=== PATIENT | female | born 1950 | race Caucasian/White ===

== ENCOUNTER 2019-09-06 15:49 | Outpatient (CLI) | payer MEDICARE, OTHER, SELFPAY ==
--- NOTE | 2019-09-06 16:03 | XR_ITS ---
WS: [id number] AP knees. HISTORY: Osteoarthritis. COMPARISON: None. Upright imaging of the knees demonstrates very mild narrowing of the medial compartments. No fracture s or dislocation or bone abnormality. XR/[place] [address] IMPRESSION: Mild narrowing medial compartments of each knee.
== END 2019-09-06 15:50 | disposition home or self-care (01) ==
LOC: RAD 15:55
PROVIDERS: PCP Registered Nurse; Visit Provider Registered Nurse
DX: M17.0 Bilateral primary osteoarthritis of knee (principal)
CPT/HCPCS: 73565

== ENCOUNTER 2019-09-13 07:38 | Outpatient (CLI) | payer MEDICARE, OTHER, SELFPAY ==
--- NOTE | 2019-09-13 07:45 | XR_ITS ---
WS: [id number] XR KUB [id number] REASON FOR EXAM: RENAL CALCULUS FINDINGS: Multiple calcified densities throughout the abdomen are seen. Calcifications are seen overr iding both kidneys we cannot exclude ureteral are renal calculus. Consideration of CT recommended as too much calcification is seen to definitely make the conclusion. There is no evidence of obstructive changes of the larger small bowel. XR/XR KUB [id number] IMPRESSION: Excessive calcification throughout the abdomen we cannot rule out stones in eit her kidney.
== END 2019-09-13 07:39 | disposition home or self-care (01) ==
PROVIDERS: PCP Registered Nurse; Visit Provider Urology
DX: N20.0 Calculus of kidney (principal); N11.1 Chronic obstructive pyelonephritis
CPT/HCPCS: 74018; 81001

== ENCOUNTER 2019-10-17 11:24 | Outpatient (CLI) | payer MEDICARE, OTHER, SELFPAY ==
--- NOTE | 2019-10-17 11:38 | MM_ITS ---
WS: [id number] BILATERAL SCREENING DIGITAL MAMMOGRAM WITH CAD HISTORY: SCREENING COMPARISON: 07/06/2018, 03/03/2017 and 01/27/2017 Bilateral CC and MLO views submitted. Computer aided detection analyzed. Breast composition: The breasts are heterogeneously dense, which may obscure small masses. No suspici ous masses, microcalcifications or architectural distortion. Biopsy clip in the central RIGHT breast. No new masses or developing calcifications. MM/[place] [id number] IMPRESSION: BI-RADS: 2-Benign FOLLOW UP: 1 Year Follow-up
== END 2019-10-17 11:25 | disposition home or self-care (01) ==
LOC: RADSHAW 11:28
PROVIDERS: PCP Registered Nurse; Visit Provider Registered Nurse
DX: Z12.31 Encounter for screening mammogram for malignant neoplasm of breast (principal)
CPT/HCPCS: 77067

== ENCOUNTER → 2020-02-14 14:28 | Outpatient (BNVA) | payer MEDICARE, OTHER, SELFPAY | PROVIDERS: PCP Registered Nurse; Visit Provider Registered Nurse | DX: R35.0 Frequency of micturition (principal); Z20.828 Contact with and (suspected) exposure to other viral communicable diseases | CPT/HCPCS: 81000; 87635 ==

== ENCOUNTER → 2020-08-06 11:15 | Outpatient (BNVA) | payer MEDICARE, OTHER, SELFPAY | PROVIDERS: PCP Registered Nurse; Visit Provider Registered Nurse | DX: B37.3 Candidiasis of vulva and vagina (principal) | CPT/HCPCS: 81000 ==

== ENCOUNTER → 2020-08-26 11:02 | Outpatient (BNVA) | payer MEDICARE, OTHER, SELFPAY | PROVIDERS: PCP Registered Nurse; Visit Provider Registered Nurse | DX: N89.8 Other specified noninflammatory disorders of vagina (principal) | CPT/HCPCS: 87070; 87205 ==

== ENCOUNTER 2020-10-04 11:16 | Outpatient (CLI) | payer MEDICARE, OTHER, SELFPAY ==
--- NOTE | 2020-10-04 11:25 | FL_ITS ---
WS: [id number] Modified barium swallow, 10/04/2020 Clinical Data: Other dysphagia Comparison: None. Fluoroscopy time: 2.5 minutes. Findings: The patient had good oral function. There is minimal residue which cleared with swallowing. There was however persistent spillage. In the pharynx there was no penetration or aspiration. There is decreas ed peristalsis. There is vallecular residue which did partially clear with swallowing. The barium tab let passed slowly through the esophagus and the patient probably has esophageal dysmotility and terti ally contractions. FL/FL barium swallow modifd [id number] Impression: 1. Good oral function with minimal persistent spillage. 2. No penetration or aspiration but decreased peristalsis. 3. Vallecular residue which clears partly with swallowing. 4. Slow passage of barium tablet through the esophagus and the patient may have esophageal dysmotility and tertiary contractions.
== END 2020-10-04 11:17 | disposition home or self-care (01) ==
LOC: RAD 11:20
PROVIDERS: PCP Registered Nurse; Visit Provider Specialist
DX: R13.10 Dysphagia, unspecified (principal)
CPT/HCPCS: 74230; 92611

== ENCOUNTER 2020-10-09 13:24 | Outpatient (CLI) | payer MEDICARE, OTHER, SELFPAY ==
--- NOTE | 2020-10-09 13:32 | CT_ITS ---
WS: [id number] CT NECK WITH CONTRAST HISTORY: DYSPHAGIA TECHNIQUE: Contiguous 5 mm axial images are performed through the neck with intravenous contrast. Sag ittal and coronal reformats are also submitted. All CT scans at [facility] use at least o ne of these dose optimization techniques: automated exposure control; mA and/or kV adjustment per pat ient size (includes targeted exams where dose is matched to clinical indication); or iterative recons truction. CONTRAST: CONTRAST: Omnipaque 300; 95 mL IV. DLP: 1080.65 mGycm COMPARISON: None available. Large amount of dental amalgam artifact through the oral cavity. High density nodules in the RIGHT palatine tonsil consistent with tonsilloliths. Torus tubarius and fossa of Rosenmuller and parapharyngeal fat are normal. Small benign cervical chain lymph nodes are noted bilaterally. Normal shape of the lymph nodes. Lymph nodes are less than a centimeter. Thyroid gland and salivary glands are normally enhancing with no masses. No osseous abnormalities. Visualized portions of the skull base demonstrate no abnormalities. Orbits and globes are within norm al limits. No soft tissue masses. Moderate opacification of the LEFT maxillary sinus and RIGHT sphenoid sinus. Soft tissue nodule measures 7 mm in the posterior RIGHT upper lobe has not been present on prior stud ies. There is additional groundglass attenuation in the upper lung samaniego bilaterally. CT/CT neck w con* [id number] IMPRESSION: 1. RIGHT palatine tonsilloliths. Likely from prior infections. 2. No neck mass or adenopathy. 3. LEFT maxillary and RIGHT sphenoid sinusitis. 4. 7 mm noncalcified nodule RIGHT upper lobe has not been described on prior i maging studies. Consider follow-up chest CT with contrast for further evaluatio n and exclude additional nodules.
[2020-10-09 14:13] LABS: Blood Urea Nitrogen 30 mg/dL (8-23)
[2020-10-09] MEDS: iodixanol 320 mg/mL 100mL Btl IV (14:53)
== END 2020-10-09 13:25 | disposition home or self-care (01) ==
LOC: RADWPI 13:27
PROVIDERS: PCP Registered Nurse; Visit Provider Specialist
DX: R13.10 Dysphagia, unspecified (principal); R91.8 Other nonspecific abnormal finding of lung field; J32.0 Chronic maxillary sinusitis; J32.3 Chronic sphenoidal sinusitis
CPT/HCPCS: 70491; 82565; 84520; Q9967

== ENCOUNTER 2020-11-06 08:06 | Outpatient (CLI) | payer MEDICARE, OTHER, SELFPAY ==
--- NOTE | 2020-11-06 10:00 | XR_ITS ---
WS: [id number] XR KUB [id number] REASON FOR EXAM: RENAL CALCULUS FINDINGS: There are multiple, multiple calcifications in the abdomen and pelvis. Most of these are not in the u rinary tract. There are however several calcifications which could be within the kidneys and ureters. There are 2 large calcifications which may lie within the left ureter. The distal most was present o n the previous examination of 09/29/2017. It is smaller at this point. More proximal calcification is new. Possible intrarenal calculi on the right with no definite ureteral calculi. There is no confirma tory CT scan of the abdomen and pelvis. The only interval change identified from 09/13/2019 is that a calcification in the right lower quadrant is no longer identifiable this calcification did not appear to lie within the urinary tract. Possibl y it was within the appendix. The multiple calcifications within the pelvis appear unchanged. XR/XR KUB [id number] IMPRESSION: Multiple abdominal and pelvic calcifications as above.
== END 2020-11-06 08:07 | disposition home or self-care (01) ==
LOC: RAD 08:10
PROVIDERS: PCP Registered Nurse; Visit Provider Urology
DX: N20.0 Calculus of kidney (principal)
CPT/HCPCS: 74018; 81003

== ENCOUNTER 2020-11-08 08:46 | Outpatient (CLI) | payer MEDICARE, OTHER, SELFPAY ==
--- NOTE | 2020-11-08 | CT_ITS ---
WS: [id number] Exam: CT chest w con* [id number] Date/Time of Exam: 11/08/2020 9:03 AM Reason For Exam: SOLITARY PULMONARY NODULE DLP: 750.[address] scans at [facility] use at least one of these dose optimization techniques: automat ed exposure control; mA and/or kV adjustment per patient size (includes targeted exams where dose is matched to clinical indication); or iterative reconstruction. Comparison 04/21/2015. The lungs are fully expanded. There is 7 mm pleural-based nodular density in the posterior aspect of the right upper lobe that probably represents scarring. This is noted on the prior study and shows li ttle change. There are scattered areas of pulmonary parenchymal scarring noted bilaterally. No acute infiltrates are seen. There is pleural thickening along the lower lateral left pleural cavity that mo st likely also represents scarring. No suspicious pulmonary mass is seen. The airway is patent. The t horacic aorta is normal in caliber. The central pulmonary arteries are clear. No pleural or pericardi al effusion seen. Calcified benign-appearing nodule in the right middle lobe. No mediastinal or hilar lymphadenopathy. Normal thyroid tissue. No axillary lymphadenopathy. No destructive bone lesions or chest wall defects. CT sections of the upper abdomen are unremarkable. CT/CT chest w con* [id number] IMPRESSION: 1. 7 mm pleural-based nodule in the posterior aspect the right upper lobe most likely representing pleural scarring. This can be seen on the prior study. 2. No suspicious pulmonary mass or lymphadenopathy in the chest. 3. Bilateral pulmonary parenchymal scarring. Left-sided pleural thickening and scarring.
[2020-11-08 09:28] LABS: Blood Urea Nitrogen 27 mg/dL (8-23); Glomerular Filtration Rate 29.9 mL/min (90-130)
[2020-11-08] MEDS: iodixanol 320 mg/mL 100mL Btl IV (09:28)
== END 2020-11-08 08:47 | disposition home or self-care (01) ==
PROVIDERS: PCP Registered Nurse; Visit Provider Specialist
DX: R91.1 Solitary pulmonary nodule (principal)
CPT/HCPCS: 71260; 82565; 84520; Q9967

== ENCOUNTER 2020-11-15 10:40 | Outpatient (RCR) | payer MEDICARE, OTHER, SELFPAY | END 2020-12-10 23:59 | disposition home or self-care (01) | LOC: SST 10:40 | PROVIDERS: PCP Registered Nurse; Referring Provider Otolaryngology; Visit Provider Otolaryngology | DX: R13.10 Dysphagia, unspecified (principal) | CPT/HCPCS: 92526; 92610 ==

== ENCOUNTER → 2020-12-18 10:45 | Outpatient (BNVA) | payer MEDICARE, OTHER, SELFPAY | PROVIDERS: PCP Registered Nurse; Visit Provider Registered Nurse | DX: R60.0 Localized edema (principal) | CPT/HCPCS: 80053; 83880 ==

== ENCOUNTER 2020-12-20 14:53 | Outpatient (CLI) | payer MEDICARE, OTHER, SELFPAY ==
[2020-12-20 16:52] LABS: Basophils # 0.1 10^3/uL (0.0-0.1); Basophils % 0.7 %; Eosinophils # 0.5 10^3/uL (0.0-0.8); Hematocrit 41.7 % (37.0-47.0); Hemoglobin 13.7 g/dL (11.5-15.3); Lymphocytes # 4.9 10^3/uL (0.8-4.8); Lymphocytes % 48.8 %; Mean Corpuscular HGB Conc 32.9 g/dL (30.0-36.0); Mean Corpuscular Hemoglobin 31.9 pg (28.0-34.0); Mean Corpuscular Volume 97.2 fl (81-99); Monocytes # 0.7 10^3/uL (0.2-0.9); Monocytes % 7.2 %; Neutrophils # 3.84 10^3/uL (1.8-7.7); Neutrophils % 38.1 %; Nucleated Red Blood Cells % 0 %; Platelet Count 154 10^3/cmm (130-400); Red Blood Count 4.29 10^6/uL (4.1-5.3); Red Cell Distribution Width 12.9 % (12.1-15.1); White Blood Count 10.1 10^3/uL (4.0-10.0)
--- NOTE | 2020-12-20 16:52 | ECG_ITS ---
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 Measurements Intervals Mcgrann Rate: 48 P: 55 VT: 169 QRS: -9 QRSD: 84 T: 26 QT: 447 QTc: 402 Interpretive Statements SINUS BRADYCARDIA POSSIBLE RIGHT VENTRICULAR CONDUCTION DELAY [RSR (QR) IN V1/V2] No previous ECG available for comparison Electronically Signed On 12-20-2020 20:36:50 CDT by Everette Bee M.D. [email or web address] centerShine Technologies Corpselect medical specialty hospital - [place].[employer]/store/NU/[id number] f
[2020-12-20 17:35] LABS: Alanine Aminotransferase 16 U/L (0-33); Albumin Level 4.4 g/dL (3.5-5.2); Alkaline Phosphatase 82 IU/L (35-105); Anion Gap 14.6 (5-19); Aspartate Amino Transferase 15 U/L (0-32); Blood Urea Nitrogen 24 mg/dL (8-23); Calcium 9.7 mg/dL (8.5-10.5); Carbon Dioxide 27 mmol/L (22-29); Chloride 105 mmol/L (98-107); Globulin 2.7 g/dL (1.3-4.6); Glomerular Filtration Rate 34.5 mL/min (90-130); Glucose 82 mg/dL (65-115); Osmolality Calculated 297 mOsm/kg (285-295); Potassium 4.6 mmol/L (3.5-5.1); Sodium 142 mmol/L (136-145); Total Bilirubin 0.3 mg/dL (0.15-1.2); Total Protein 7.1 g/dL (6.6-8.7)
== END 2020-12-20 14:54 | disposition home or self-care (01) ==
LOC: RAD 15:01 → RT 15:02
PROVIDERS: PCP Registered Nurse; Visit Provider Specialist
DX: J32.9 Chronic sinusitis, unspecified (principal); R00.1 Bradycardia, unspecified; R94.31 Abnormal electrocardiogram [ECG] [EKG]
CPT/HCPCS: 36415; 80053; 85025; 93005

== ENCOUNTER → 2021-01-22 09:20 | Outpatient (BNVA) | payer MEDICARE, OTHER, SELFPAY | PROVIDERS: PCP Registered Nurse; Visit Provider Urology | DX: N30.90 Cystitis, unspecified without hematuria (principal); N39.41 Urge incontinence; R33.9 Retention of urine, unspecified | CPT/HCPCS: 81003 ==

== ENCOUNTER 2021-02-12 06:00 | Outpatient (RCR) | payer MEDICARE, OTHER, SELFPAY | END 2021-03-11 23:59 | disposition home or self-care (01) | LOC: SPT 06:00 | PROVIDERS: PCP Psychiatry & Neurology Neurology; Referring Provider Psychiatry & Neurology Neurology; Visit Provider Psychiatry & Neurology Neurology | DX: H81.10 Benign paroxysmal vertigo, unspecified ear (principal) | CPT/HCPCS: 97112; 97162 ==

== ENCOUNTER 2021-03-12 12:43 | Outpatient (RCR) | payer MEDICARE, OTHER, SELFPAY | END 2021-04-11 23:59 | disposition home or self-care (01) | LOC: SPT 12:43 | PROVIDERS: PCP Psychiatry & Neurology Neurology; Referring Provider Psychiatry & Neurology Neurology; Visit Provider Psychiatry & Neurology Neurology | DX: H81.10 Benign paroxysmal vertigo, unspecified ear (principal) | CPT/HCPCS: 97112 ==

== ENCOUNTER 2021-07-08 08:57 | Outpatient (CLI) | payer MEDICARE, OTHER, SELFPAY ==
--- NOTE | 2021-07-08 09:18 | MM_ITS ---
WS: [id number] BILATERAL SCREENING 3D TOMOSYNTHESIS DIGITAL MAMMOGRAM WITH CAD HISTORY: SCREENING COMPARISON: 10/17/2019, 07/06/2018 Bilateral CC and MLO views submitted. Computer aided detection analyzed. Breast composition: The breasts are heterogeneously dense, which may obscure small masses. No suspici ous masses, microcalcifications or architectural distortion. Biopsy clip in the mid upper outer quadr ant RIGHT breast. No adjacent mass or soft tissue. The fibroglandular pattern is stable. MM/[place] [id number] IMPRESSION: BI-RADS: 2-Benign FOLLOW UP: 1 Year Follow-up
== END 2021-07-08 08:58 | disposition home or self-care (01) ==
PROVIDERS: PCP Registered Nurse; Visit Provider Registered Nurse
DX: Z12.31 Encounter for screening mammogram for malignant neoplasm of breast (principal)
CPT/HCPCS: 77063; 77067

== ENCOUNTER 2021-09-02 09:04 | Outpatient (CLI) | payer MEDICARE, OTHER, SELFPAY ==
--- NOTE | 2021-09-02 09:38 | XR_ITS ---
WS: [id number] Exam: XR KUB [id number] Date/Time of Exam: 09/02/2021 9:41 AM Reason For Exam: RENAL CALCULUS, RIGHT Comparison 11/06/2020. No sign of bowel obstruction or free air. Again noted are multiple scattered calcifications in the ab domen and pelvis. No sign of organ enlargement. Regional bony elements are intact. Signs of prior cho lecystectomy. XR/XR KUB [id number] IMPRESSION: 1. Multiple abdominal and pelvic calcifications. 2. No acute abdominal process.
== END 2021-09-02 09:05 | disposition home or self-care (01) ==
PROVIDERS: PCP Registered Nurse; Visit Provider Urology
DX: N20.0 Calculus of kidney (principal)
CPT/HCPCS: 51798; 74018; 81003; 87086; 99213

== ENCOUNTER → 2021-09-02 09:10 | Outpatient (BNVA) | payer MEDICARE, OTHER, SELFPAY | PROVIDERS: PCP Registered Nurse; Visit Provider Nurse Practitioner Family | DX: N30.90 Cystitis, unspecified without hematuria (principal); N39.41 Urge incontinence; N20.9 Urinary calculus, unspecified; R33.9 Retention of urine, unspecified | CPT/HCPCS: 51798; 99213 ==

== ENCOUNTER → 2021-10-06 10:32 | Outpatient (BNVA) | payer MEDICARE, OTHER, SELFPAY | PROVIDERS: PCP Registered Nurse; Visit Provider Nurse Practitioner Family | DX: N30.90 Cystitis, unspecified without hematuria (principal); N20.9 Urinary calculus, unspecified; N39.41 Urge incontinence | CPT/HCPCS: 81003; 99213; 99214 ==

== ENCOUNTER → 2021-12-08 10:22 | Outpatient (BNVA) | payer MEDICARE, OTHER, SELFPAY | PROVIDERS: PCP Registered Nurse; Visit Provider Registered Nurse | DX: L90.0 Lichen sclerosus et atrophicus (principal) | CPT/HCPCS: 87070; 87077; 87184; 87205 ==

== ENCOUNTER 2022-01-30 08:02 | Outpatient (CLI) | payer MEDICARE, OTHER, SELFPAY ==
--- NOTE | 2022-01-30 08:21 | XR_ITS ---
WS: [id number] KUB, AP view, 01/30/2022 Clinical Data: Urolithiasis Comparison: KUB, 09/02/2021. Findings: No abnormal intraabdominal masses are seen. There is no dilatated small bowel or evidence of obstruct ion. There are numerous intra-abdominal calcifications some of which may be renal. There are numerous pelv ic calcifications. There are clips in the right upper quadrant from a cholecystectomy. XR/XR KUB [id number] Impression: Multiple abdominal calcifications.
== END 2022-01-30 08:03 | disposition home or self-care (01) ==
LOC: RAD 08:05
PROVIDERS: PCP Registered Nurse; Visit Provider Urology
DX: N20.9 Urinary calculus, unspecified (principal); N30.90 Cystitis, unspecified without hematuria; N39.41 Urge incontinence
CPT/HCPCS: 51798; 74018; 81003; 99213

== ENCOUNTER 2022-02-04 08:27 | Outpatient (CLI) | payer MEDICARE, OTHER, SELFPAY ==
[2022-02-04 09:38] LABS: Anion Gap 13.1 (5-19); Blood Urea Nitrogen 32 mg/dL (8-23); Calcium 9.2 mg/dL (8.5-10.5); Carbon Dioxide 29 mmol/L (22-29); Chloride 102 mmol/L (98-107); Glomerular Filtration Rate 34.4 mL/min (90-130); Glucose 92 mg/dL (65-115); Osmolality Calculated 297 mOsm/kg (285-295); Phosphorus 3.9 mg/dL (2.5-4.5); Potassium 4.1 mmol/L (3.5-5.1); Sodium 140 mmol/L (136-145); Uric Acid 5.6 mg/dL (2.4-5.7)
== END 2022-02-04 08:28 | disposition home or self-care (01) ==
LOC: LAB 08:30
PROVIDERS: Urology; PCP Registered Nurse; Visit Provider Nurse Practitioner Family
DX: N30.90 Cystitis, unspecified without hematuria (principal)
CPT/HCPCS: 80048; 84100; 84550

== ENCOUNTER 2022-02-06 08:24 | Outpatient (CLI) | payer MEDICARE, OTHER, SELFPAY ==
[2022-02-12 18:47] LABS: Uric Stone 0.26 (<2.00); Urine Ammonia 24 Hour 8 mEq/day (14-62); Urine Citric Acid 24 Hour 518 mg/day (>320); Urine PH 24 Hour 6.9 (5.5-7.0); Urine Phosphorus 24 Hour 880 mg/day (<1100); Urine Potassium 24 Hour 50 mEq/day (19-135); Urine Sulfate 24 Hour 18 mmol/day (<30)
== END 2022-02-06 08:25 | disposition home or self-care (01) ==
LOC: LAB 08:26
PROVIDERS: PCP Registered Nurse; Visit Provider Urology
DX: N30.90 Cystitis, unspecified without hematuria (principal)
CPT/HCPCS: 81003; 82131; 82140; 82340; 82436; 82507; 82570; 83735; 83935; 84300

== ENCOUNTER → 2022-03-27 07:59 | Outpatient (BNVA) | payer MEDICARE, OTHER, SELFPAY | PROVIDERS: PCP Registered Nurse; Visit Provider Urology | DX: N39.41 Urge incontinence (principal); N20.9 Urinary calculus, unspecified; I63.9 Cerebral infarction, unspecified | CPT/HCPCS: 81003; 99213 ==

== ENCOUNTER 2022-08-13 08:56 | Outpatient (CLI) | payer MEDICARE, OTHER, SELFPAY ==
--- NOTE | 2022-08-13 09:03 | MM_ITS ---
WS: [id number] Bilateral screening 3D tomosynthesis digital mammogram, 08/13/2022 Clinical Data: SCREENING Comparison: 07/08/2021, 10/17/2019, 07/06/2018, 03/03/2017, 01/27/2017, 12/31/2015, 03/30/2013, 12/09/2011. Findings: The breast parenchymal pattern shows heterogeneous density. No spiculated masses or clustered calcifi cations are seen. There are no secondary signs of carcinoma. There is a biopsy clip in the right t[address]. There are mole markers on both breasts. MM/[place] [id number] Impression: 1. Negative bilateral mammogram unchanged. 2. Recommend annual screening mammograms. BIRADS: 1-Negative FOLLOW UP: 1 Year Follow-up The CAD mechanical car checker was used.
== END 2022-08-13 08:57 | disposition home or self-care (01) ==
LOC: RAD 08:59
PROVIDERS: PCP Registered Nurse; Visit Provider Registered Nurse
DX: Z12.31 Encounter for screening mammogram for malignant neoplasm of breast (principal)
CPT/HCPCS: 77063; 77067

== ENCOUNTER 2022-09-14 11:48 | Outpatient (CLI) | payer MEDICARE, OTHER, SELFPAY ==
--- NOTE | 2022-09-14 11:57 | XR_ITS ---
WS: [id number] KUB, AP view, 09/14/2022 Clinical Data: stones Comparison: None. Findings: No abnormal intraabdominal masses are seen. There is no dilatated small bowel or evidence of obstruct ion. There are numerous calcifications overlying both kidneys. There are other intra-abdominal and pelvic calcifications unchanged. There are clips in the right upper quadrant from a cholecystectomy. XR/XR KUB [id number] Impression: Multiple abdominal and probable pelvic calcifications.
== END 2022-09-14 11:49 | disposition home or self-care (01) ==
LOC: RAD 11:54
PROVIDERS: PCP Registered Nurse; Visit Provider Urology
DX: N20.0 Calculus of kidney (principal); N39.41 Urge incontinence; Z87.440 Personal history of urinary (tract) infections; Z79.899 Other long term (current) drug therapy
CPT/HCPCS: 74018; 81003; 99213

== ENCOUNTER 2022-12-16 09:57 | Emergency (ER) | payer MEDICARE, OTHER, SELFPAY ==
--- NOTE | 2022-12-16 10:01 | USCV_ITS ---
Milena Fuller Age: 72 Gender: F : 1950 Exam Date: 12/16/2022 10:21 Ordering Phys: Lashawn Platt Technologist: ELENA [place]am [place] [facility] [place]ication: LE pain HISTORY: Lower extremity pain. PROCEDURES: Venous duplex imaging was performed in only the left lower extremity. The following venous structures were evaluated: common femoral vein, profunda vein, proximal portion of the greater saphenous vein, superficial femoral vein, and the popliteal vein. In addition, the posterior tibial and peroneal trunk were evaluated. Serial compression, augmentation maneuvers, and spectral Doppler flow evaluation were performed. FINDINGS: No evidence of DVT seen in any vessel visualized at this time. Appears to have thrombus in GSV from mid thigh to ankle CONCLUSIONS Occlusive Thrombus Left GSV extending from mid thigh to ankle No evidence of DVT LLE D/w Lashawn Platt at 1151am Isaac Martinez MD (Electronically Signed) Final Date: 16 December 2022 11:52 S
[2022-12-16 10:08] VITALS: BP 130/83; PULSE 62; RESP 16; TEMP 36.7; O2SAT 98; BMI 27.3
--- NOTE | 2022-12-16 10:42 | W.ED.EXTPRO ---
HPI - Extremity Problem General: Chief complaint: Extremity Problem,Nontraumatic Stated complaint: Korin sent for poss. blood clot-left leg Time Seen by Provider: 12/16/22 09:59 Source: patient Mode of arrival: ambulatory Limitations: no limitations History of Present Illness: Patient is a very nice 72-year-old female who presents to ED today with complaint of left lower extremity pain and swelling she began noticing about 2 days ago. She was reportedly seen by her primary care provider who referred her to the emergency department for further evaluation rule out DVT. Patient denies any recent surgeries. She is not on any kind of hormone replacement. She states the only long car rides/plane ride she has been on is a trip to [place] recently. No previous history of PE/DVT. She denies shortness of breath or difficulty breathing or chest pain. MD Complaint: extremity pain and extremity swelling Onset (ago): day(s) Pain Consistency: constant Location: left and lower extremity Quality: burning Radiation: none Relieving factors: nothing Exacerbating factors: nothing Associated symptoms: Reports no associated symptoms; Deny chest pain or fever(s) Review of Systems Const: Denies: fever(s), chills, body aches, fatigue or malaise Card: Denies: chest pain, palpitations, lightheadedness, syncope, pre-syncope, dyspnea on exertion or orthopnea Resp: Denies: dyspnea GI: Denies: nausea or vomiting Musc: Reports: extremity pain and extremity swelling; Denies: joint pain, joint swelling, joint redness, joint warmth, limited range of motion, muscle cramps or muscle weakness Neuro: Denies: numbness in extremities, weakness in extremities, sensory changes or difficulty walking PFS ED PFSH: Medical History Anxiety Dehydration Edema of extremities Esophageal dysfunction History of sepsis Hypercholesteremia Incomplete bladder emptying Intractable migraine without aura with status migrainosus Multiple lacunar infarcts Recurrent cystitis Renal calculus, right Stroke Viral syndrome Vomiting Surgical History History of arthroscopy of shoulder History of bowel diversion surgery Hx of cholecystectomy Hx of sinus surgery Hx of vaginal hysterectomy S/P cystoscopy with ureteral stent placement Family History Mother Cancer Alzheimer disease Father , at age 94 Dementia Hypertension Social History Smoking and tobacco status: never smoked Alcohol intake: current Alcohol intake frequency: few times a month Substance/Drug Use: never Adopted: No Caregiver/support person: No Lives independently: No Household members: spouse Marital status: service: No Current occupational status: retired Sexually active: Yes Do you think of yourself as: Straight/Heterosexual Current gender identity: Female Physical Exam Const: COMMON NORMALS: no acute distress, average body habitus, patient oriented x3, no limitations, healthy appearing, alert and well nourished GENERAL APPEARANCE: cooperative ORIENTATION/CONSCIOUSNESS: Yes awake, Yes oriented to person, Yes oriented to place and Yes oriented to time Resp: COMMON NORMALS: normal respiratory effort and clear to auscultation bilaterally AUSCULTATION: clear to auscultation bilaterally Cardio: COMMON NORMALS: regular rate and regular rhythm RATE: regular rate RHYTHM: regular rhythm Extremity: COMMON NORMALS: full ROM, capillary refill normal, no joint enlargement, no clubbing, cyanosis or edema, no calf tenderness and no pedal edema GENERAL: Yes normal exam except as noted LEFT LOWER EXTREMITY: Yes upper leg OTHER: TTP and mild swelling noted to medial aspect L thigh; no obvious palpable cords appreciated; no erythema/warmth; no calf pain/swelling noted Neuro: COMMON NORMALS: patient oriented x3 SENSORIUM/ORIENTATION: Yes alert, Yes oriented to person, Yes oriented to place and Yes oriented to time Course Vital Signs: Vital signs: Vital Signs Temperature 98.0 F 12/16/22 10:08 Pulse Rate 63 12/16/22 11:03 Respiratory Rate 16 12/16/22 11:03 Blood Pressure 132/66 12/16/22 11:03 Pulse Oximetry 95 12/16/22 11:03 Oxygen Delivery Me thod Room Air 12/16/22 11:03 MDM - Extremity (Nontraumatic) Medical Decision Making US prelim report showing an extensive superficial thrombus to her greater saphenous vein. Nothing close to her SFJ. Recommendations are for thrombus >5cm to receive anticoagulation for 45 days. Recommend she follow up with PCP in 1-2 weeks for re-assessment. Strict return to ED precautions given. Discharge Plan Discharge Patient Disposition: Home Clinical Impression: Acute superficial venous thrombosis of left lower extremity Condition: Stable Prescriptions: New Eliquis 5 mg tablet 5 mg PO BID Qty: 74 0RF Rx Instructions: Take two tabs (10mg) PO BID x 7 days then one tab (5mg) PO BID thereafter No Action aspirin 81 mg tablet,delayed release (DR/EC) 81 mg PO BEDTIME (DME) nebulizers Misc See Rx Instructions .Route Qty: 1 0RF Rx Instructions: daily magnesium 200 mg tablet 200 mg PO QAM clobetasol 0.05 % cream 1 applic topical DAILY PRN (Reason: lichen sclerosus) Qty: 45 3RF Rx Instructions: two times a week for 2 weeks then weekly loratadine 10 mg tablet 10 mg PO DAILY PRN (Reason: allergy symptoms) Qty: 30 0RF Calcium 500 500 mg calcium (1,250 mg) Tablet 500 mg PO BEDTIME Neilmed Sinus Rinse Complete Packet With Rinse Device See Rx Instructions .ROUTE .COMPLEX Rx Instructions: as directed twice a day propranolol 80 mg tablet 80 mg PO BID amlodipine 5 mg tablet 5 mg PO QAM amitriptyline 25 mg tablet 25 mg PO BEDTIME montelukast 10 mg tablet 10 mg PO QAM buspirone 15 mg tablet 7.5 mg PO BID Myrbetriq 50 mg tablet extended release 24 hr 50 mg PO QAM Discharge Orders: Discharge ED (Routine); Ordered 12/16/22 Ordered By: Lashawn Platt Referrals: Krishan Dejesus FNP [Primary Care Provider] - Patient Instructions: Superficial Thrombophlebitis (ED) Activity Restrictions/Additional Instructions: As we discussed you do not have a deep vein thrombosis however you do have an extensive superficial vein thrombus. Guidelines at this time are anticoagulation for approximately 45 days. You have been given a prescription for anticoagulation for the next month. You need to follow-up with your primary care provider in approximately 2 weeks for reevaluation. You need to return to the emergency department for worsening swelling or pain, shortness of breath or difficulty breathing, chest pain, or any other concerns you may have. Coding Level of Care Code ED Prosthetic Aides Teacher for Dahiana Armenta
[2022-12-16 10:56] VITALS: PULSE 58
[2022-12-16 11:03] VITALS: BP 132/66; PULSE 63; RESP 16; O2SAT 95
== END 2022-12-16 12:08 | disposition home or self-care (01) ==
PROVIDERS: Emergency Provider Physician Assistant; PCP Registered Nurse
DX: I82.812 Embolism and thrombosis of superficial veins of left lower extremity (principal); Z86.73 Personal history of transient ischemic attack (TIA), and cerebral infarction without residual deficits
CPT/HCPCS: 93971; 99284

== ENCOUNTER → 2022-12-22 08:57 | Outpatient (BNVA) | payer MEDICARE, OTHER, SELFPAY | PROVIDERS: PCP Registered Nurse; Visit Provider Registered Nurse | DX: I10 Essential (primary) hypertension (principal); F41.9 Anxiety disorder, unspecified; I82.812 Embolism and thrombosis of superficial veins of left lower extremity | CPT/HCPCS: 80053; 80061; 85007; 85025 ==

== ENCOUNTER → 2023-03-17 11:02 | Outpatient (BNVA) | payer MEDICARE, OTHER, SELFPAY | PROVIDERS: PCP Registered Nurse; Visit Provider Registered Nurse | DX: Z11.52 Encounter for screening for COVID-19 (principal); R68.89 Other general symptoms and signs | CPT/HCPCS: 87400; 87426 ==

== ENCOUNTER 2023-05-12 08:45 | Outpatient (CLI) | payer MEDICARE, OTHER, SELFPAY ==
[2023-05-12 09:47] LABS: Basophils # 0.1 10^3/uL (0.0-0.1); Basophils % 0.7 %; Eosinophils % 9.8 %; Hematocrit 43.9 % (36-47); Lymphocytes # 5.3 10^3/uL (0.8-4.8); Lymphocytes % 50.6 %; Mean Corpuscular HGB Conc 32.3 g/dL (30-55); Mean Corpuscular Hemoglobin 31.6 pg (27-33); Mean Corpuscular Volume 97.6 fl (85-98); Monocytes # 0.7 10^3/uL (0.2-0.9); Monocytes % 6.5 %; Neutrophils # 3.36 10^3/uL (1.8-7.7); Neutrophils % 32.2 %; Nucleated Red Blood Cells % 0 %; Platelet Count 276 10^3/cmm (157-399); Red Cell Distribution Width 12.8 % (12.1-15.1); White Blood Count 10.42 10^3/uL (3.29-11.43)
[2023-05-12 10:17] LABS: Calcium 9.6 mg/dL (8.5-10.5)
[2023-05-12 10:22] LABS: Albumin Level 4.2 g/dL (3.5-5.2); Anion Gap 15.1 (5-19); Blood Urea Nitrogen 23 mg/dL (8-23); Calcium 9.4 mg/dL (8.5-10.5); Carbon Dioxide 24 mmol/L (22-29); Chloride 107 mmol/L (98-107); Glomerular Filtration Rate 34.3 mL/min (90-130); Glucose 116 mg/dL (65-115); Parathyroid Hormone 42.3 pg/mL (15-65); Phosphorus 3.2 mg/dL (2.5-4.5); Potassium 4.1 mmol/L (3.5-5.1); Sodium 142 mmol/L (136-145)
[2023-05-12 10:35] LABS: Slide Review Slide Review Perform
[2023-05-12 10:37] LABS: 25 Hydroxy Vitamin D 61 ng/mL (30-100)
[2023-05-12 11:10] LABS: Creatinine Urine, Random 74 mg/dL (28-217); Microalbum Creatinine Ratio Ur 14 mg/dL (0-20); Microalbumin Random Urine 1 ug/dL (0-20)
[2023-05-12 11:14] LABS: Bilirubin Urine Neg (Negative); Blood Urine Neg (Negative); Glucose Urine UA Norm (Normal); Ketones Urine Negative (Negative); Leukocyte Esterase Urine Negative (Negative); Nitrate Urine Negative (Negative); Protein Urine Neg (Negative); Urine Appearance Clear (CLEAR); Urine Color Yellow (Yellow); Urobilinogen Urine Norm (Negative); pH Urine 5 (5-7)
[2023-05-12 11:16] LABS: Add Urine Culture? No; Renal Epithelial Cells Urine 1 /hpf; WBC Urine RARE /hpf (0-5)
== END 2023-05-12 08:46 | disposition home or self-care (01) ==
LOC: LAB 08:50
PROVIDERS: PCP Registered Nurse; Visit Provider Internal Medicine Nephrology
DX: N18.32 Chronic kidney disease, stage 3b (principal)
CPT/HCPCS: 36415; 80069; 81001; 82044; 82306; 82310; 83970; 85025

== ENCOUNTER → 2023-05-13 08:24 | Outpatient (BNVA) | payer MEDICARE, OTHER, SELFPAY | PROVIDERS: PCP Registered Nurse; Visit Provider Registered Nurse | DX: R73.09 Other abnormal glucose (principal) | CPT/HCPCS: 83036 ==

== ENCOUNTER 2023-05-21 14:05 | Outpatient (CLI) | payer MEDICARE, OTHER, SELFPAY ==
--- NOTE | 2023-05-21 14:30 | XR_ITS ---
WS: [email or web address] SCREENING DEXA SCAN [employer] CLINICAL INFORMATION: M81.0 - Age-related osteoporosis without current patholog... COMPARISON: None. FINDINGS: The L1-L4 bone mineral density measures 0.925 g/cm2. This corresponds to a T score score of -2.1 and Z score of -1.1. Left femoral neck bone mineral density measures 0.799 g/cm2. This corresponds to a T score of -1.7 an d Z score of -0.6. Right femoral neck bone mineral density measures 0.834 g/cm2. This corresponds to a T score -1.4of an d Z score of -0.3. Mean femoral neck bone mineral density measures 0.817 g/cm2. This corresponds to a T score of -1.5 an d Z score of -0.5. IMPRESSION: Osteopenia lumbar spine. Osteopenia femoral necks. Patient's FRAX calculated 10 year probability for major osteoporotic fracture is 11.7% and osteoporot ic hip fracture is 2.3%.
== END 2023-05-21 14:06 | disposition home or self-care (01) ==
LOC: RAD 14:06
PROVIDERS: PCP Registered Nurse; Visit Provider Registered Nurse
DX: M81.0 Age-related osteoporosis without current pathological fracture (principal); M85.88 Other specified disorders of bone density and structure, other site
CPT/HCPCS: 77080

== ENCOUNTER → 2023-05-28 09:02 | Outpatient (BNVA) | payer MEDICARE, OTHER, SELFPAY | PROVIDERS: PCP Registered Nurse; Referring Provider Registered Nurse; Visit Provider Surgery | DX: Z12.11 Encounter for screening for malignant neoplasm of colon (principal); Z80.0 Family history of malignant neoplasm of digestive organs | CPT/HCPCS: 99024; 99204 ==

== ENCOUNTER 2023-06-23 09:41 | Day surgery (SDC) | payer MEDICARE, OTHER, SELFPAY ==
[2023-06-23 10:01] VITALS: BP 122/76; PULSE 100; RESP 18; TEMP 36.1; O2SAT 95
[2023-06-23] MEDS: sodium chloride 0.9% 1,000 ML 30 ML IV (10:21)
--- NOTE | 2023-06-23 10:34 | ANES.PREANE2 ---
Pre-Anesthetic Assessment Height/Weight: Height 1.7 m Weight 81.647 kg Temp Pulse Resp BP Pulse Ox O2 Del Method 96.9 F L 100 18 122/76 95 Room Air 06/23/23 10:06/23/23 10:06/23/23 10:01 06/23/23 10:06/23/23 10:06/23/23 10:01 Operation Date: 06/23/23 11:30 Proposed Procedures p 22332 colon G0105 screen colon H risk Z12.11,Z80.0(Not Applicable) - Luis Carter, DO Was Beta Terrell taken within 24 hours: Yes Was Clonidine taken within 24 hours: Yes Last intake: Intake Last Liquid Date 06/22/23 Last Liquid Time 22:00 Last Solid Date 06/21/23 Last Solid Time 18:00 Last Intake: 22:00 Social No alcohol and No tobacco Exam alert, oriented x 3, clear to auscultation bilaterally and regular rate & rhythm Airway Submandibular: within normal limits Cervical ROM: within normal limits Mallampati: Class II Pulmonary None reported CV/HEM Hypertension pt on xorelto for superficial leg vein thrombosis 6 months ago urinary retention Hepatic None reported GI Gastroesophageal Reflux Disease Metabolic None reported Musc/skel Rheumatoid Arthritis and None reported Neuropsych Cerebrovascular Accident Anesthetic Plan ASA status: 3 Anesthesia: MAC and Regional (specify below) Risk of > 500 ml blood loss (7ml/kg in children): Yes, adequate IV access and fluids planned Medications/Allergies Home Medications Medication Instructions Recorded Confirmed Last Taken Type magnesium 200 mg tablet 200 mg PO QAM 08/22/19 06/21/23 06/22/23 History aspirin 81 mg tablet,delayed 81 mg PO BEDTIME 09/06/19 06/21/23 06/22/23 History release nebulizers #1 ea 08/14/20 06/21/23 06/22/23 Rx clobetasol 0.05 % topical cream 1 applic topical DAILY PRN lichen 12/08/21 06/21/23 06/22/23 Rx sclerosus #45 grams loratadine 10 mg tablet 10 mg PO DAILY PRN allergy 04/27/22 06/21/23 06/22/23 Rx symptoms #30 tabs calcium carbonate 500 mg calcium 500 mg PO BEDTIME 12/16/22 06/21/23 06/22/23 History (1,250 mg) tablet mirabegron 50 mg tablet,extended 50 mg PO QAM 12/16/22 06/21/23 06/22/23 History release 24 hr (Myrbetriq) sodium chloride, sodium See Rx Instructions .Route .COMPLEX 12/16/22 06/21/23 06/22/23 History bicarb-nasal rinse squeeze bottle with packet (Neilmed Sinus Rinse Complete with packet) buspirone 15 mg tablet 7.5 mg (1/2 x 15 mg) PO BID 90 12/23/22 06/21/23 06/22/23 Rx days #90 tabs rivaroxaban 20 mg tablet 20 mg PO DAILY #90 tabs 04/21/23 06/21/23 06/18/23 Rx cholecalciferol (vitamin D3) 1,250 1,250 mcg PO .weekly 90 days #12 06/04/23 06/21/23 06/22/23 Rx mcg (50,000 unit) tablet tabs amitriptyline 25 mg tablet 25 mg PO DAILY 06/21/23 06/21/23 06/22/23 History amlodipine 5 mg tablet 5 mg PO DAILY 06/21/23 06/21/23 06/22/23 History montelukast 10 mg tablet 10 mg PO DAILY 06/21/23 06/21/23 06/22/23 History propranolol 80 mg tablet 80 mg PO BID 06/21/23 06/21/23 06/22/23 History Allergies Allergy/AdvReac Type Severity Reaction Status Date / Time cephalexin [From Keflex] Allergy Unknown Unknown Verified 06/04/23 14:48 ciprofloxacin [From Cipro] Allergy Unknown Unknown Verified 06/04/23 14:48 codeine Allergy Unknown Unknown Verified 06/04/23 14:48 dextromethorphan Allergy Unknown Unknown Verified 06/04/23 14:48 [From Scot-Tussin DM Cough Chasers] diphenhydramine Allergy Unknown Unknown Verified 06/04/23 14:48 [From Benadryl] doxycycline Allergy Unknown Unknown Verified 06/04/23 14:48 meperidine [From Demerol] Allergy Unknown Unknown Verified 06/04/23 14:48 nitrofurantoin Allergy Unknown Unknown Verified 06/04/23 14:48 pseudoephedrine Allergy Unknown Unknown Verified 06/04/23 14:48 sulfamethoxazole Allergy Unknown Unknown Verified 06/04/23 14:48 [From Bactrim] tamsulosin [From Flomax] Allergy Unknown Unknown Verified 06/04/23 14:48 trimethoprim [From Bactrim] Allergy Unknown Unknown Verified 06/04/23 14:48 yellow dye Allergy ALGY-Rash Verified 06/04/23 14:48 SUNSCREEN Allergy Unknown Unknown Uncoded 06/04/23 14:48 Current Medications Generic Name Dose Route Start Last Admin Trade Name Kainq PRN Reason Stop Dose Admin Sodium Chloride 1,000 mls @ 30 mls/hr 06/23/23 10:00 06/23/23 10:21 Sodium Chloride 0.9% IV 06/24/23 09:59 30 mls/hr .Q24H LIGIA Administration PFSH Anesthesia Medical History (Updated 06/04/23 @ 14:46 by MAITE Hinds) Family history of colon cancer Dehydration Vomiting Viral syndrome Hypercholesteremia Intractable migraine without aura with status migrainosus Esophageal dysfunction History of sepsis Incomplete bladder emptying Stroke Multiple lacunar infarcts Recurrent cystitis Anxiety Renal calculus, right Edema of extremities Surgical History (Updated 05/28/23 @ 09:38 by Luis Carter DO) Hx of colonoscopy age 52 Hx of sinus surgery History of bowel diversion surgery Hx of vaginal hysterectomy Hx of cholecystectomy History of arthroscopy of shoulder S/P cystoscopy with ureteral stent placement Family History Mother Cancer Alzheimer disease Father , at age 94 Dementia Hypertension Social History Smoking and tobacco/nicotine status: never used tobacco/nicotine Alcohol intake: current Alcohol intake frequency: few times a month Substance/Drug Use: never Adopted: No Caregiver/support person: No Lives independently: No Household members: spouse Marital status: service: No Current occupational status: retired Sexually active: Yes Do you think of yourself as: Straight/Heterosexual Current gender identity: Female Data Anesthesia Cardiac Studies: No Data to Display
--- NOTE | 2023-06-23 11:36 | W.PM.OPSUD ---
Surgery/Procedure H&P Update DATE OF PROCEDURE: June 23, 2023 DATE H&P PERFORMED: 05/28/23 H&P UPDATE INFORMATION: I have reviewed H&P completed within last 30 days, I have examined patient prior to procedure and No changes to prior documentation PLANNED PROCEDURE: Operation Date: 06/23/23 11:30 Proposed Procedures p 90288 colon G0105 screen colon H risk Z12.11,Z80.0(Not Applicable) - Luis Carter DO
[2023-06-23 11:58] VITALS: BP 112/68; PULSE 100; RESP 18; TEMP 37; O2SAT 95
[2023-06-23 12:17] VITALS: BP 129/81; PULSE 97; RESP 16; O2SAT 98
--- NOTE | 2023-06-23 12:30 | ANE.PACU2 ---
Inpatient post-anesthesia follow up: Airway intact: Yes Vital signs: Temperature 98.6 F Pulse Rate 97 Respiratory Rate 16 Blood Pressure 129/81 Pulse Oximetry 98 Oxygen Delivery Me thod Room Air Oxygen Flow Rate Fraction of Inspir ed Oxygen Hydration adequate: Yes Nausea and vomiting: No Pain level: 1 Mental status: Baseline
== END 2023-06-23 12:31 | disposition home or self-care (01) ==
PROVIDERS: PCP Registered Nurse; Visit Provider Surgery
PROC: 0DJD8ZZ Inspection of Lower Intestinal Tract, Via Natural or Artificial Opening Endoscopic (ICD-10-PCS; CPT 45378; principal; 2023-06-23 11:30)
DX: Z12.11 Encounter for screening for malignant neoplasm of colon (principal); Z80.0 Family history of malignant neoplasm of digestive organs; K57.30 Diverticulosis of large intestine without perforation or abscess without bleeding; K62.1 Rectal polyp; I10 Essential (primary) hypertension; Z79.01 Long term (current) use of anticoagulants; M06.9 Rheumatoid arthritis, unspecified; Z86.73 Personal history of transient ischemic attack (TIA), and cerebral infarction without residual deficits; Z79.82 Long term (current) use of aspirin; Z86.010 Personal history of colon polyps
CPT/HCPCS: 45385; 88305; J2704; J7030

== ENCOUNTER → 2023-07-12 08:48 | Outpatient (BNVA) | payer MEDICARE, OTHER, SELFPAY | PROVIDERS: PCP Registered Nurse; Visit Provider Surgery | DX: Z09 Encounter for follow-up examination after completed treatment for conditions other than malignant neoplasm (principal); K57.90 Diverticulosis of intestine, part unspecified, without perforation or abscess without bleeding | CPT/HCPCS: 99214 ==

== ENCOUNTER 2023-09-29 10:30 | Outpatient (CLI) | payer MEDICARE, SELFPAY ==
--- NOTE | 2023-09-29 10:30 | MM_ITS ---
WS: [id number] VIEWS: MLO and CC views both breasts. 3D digital tomosynthesis is also included in this exam. Comparison made with prior exam of 01/27/2017, 12/09/2011, 03/30/2013, 12/31/2015, 07/06/2018, 10/17/2019, 07/08/2021, 08/13/2022,. Findings: There was no sign of mass, architectural distortion or suspicious calcification in either breast. Bio psy marker noted in the RIGHT breast. The breasts are extremely dense which lowers the sensitivity of mammography. MM/[place] [id number] Impression: BI-RADS: 2-Benign finding. FOLLOW-UP: 1 Year Follow-up This mammogram was also analyzed by the Computer Aided Detection System R2 Imag e [employer].
== END 2023-09-29 10:31 | disposition home or self-care (01) ==
LOC: MOBLMAM 10:51
PROVIDERS: PCP Registered Nurse; Visit Provider Registered Nurse
DX: Z12.31 Encounter for screening mammogram for malignant neoplasm of breast (principal)
CPT/HCPCS: 77063; 77067

== ENCOUNTER 2023-11-04 16:09 | Outpatient (CLI) | payer MEDICARE, SELFPAY ==
[2023-11-04 18:23] LABS: Basophils # 0.1 10^3/uL (0.0-0.1); Basophils % 0.5 %; Eosinophils # 1.1 10^3/uL (0.0-0.8); Eosinophils % 8.7 %; Hematocrit 44.5 % (36-47); Lymphocytes # 6.7 10^3/uL (0.8-4.8); Lymphocytes % 51.9 %; Mean Corpuscular HGB Conc 33.5 g/dL (30-55); Mean Corpuscular Hemoglobin 32.4 pg (27-33); Mean Corpuscular Volume 96.7 fl (85-98); Mean Platelet Volume 9.9 fL (7.4-10.4); Monocytes # 0.9 10^3/uL (0.2-0.9); Monocytes % 7.3 %; Neutrophils # 4.04 10^3/uL (1.8-7.7); Neutrophils % 31.4 %; Nucleated Red Blood Cells % 0 %; Platelet Count 246 10^3/cmm (157-399); Red Cell Distribution Width 14.1 % (12.1-15.1); White Blood Count 12.87 10^3/uL (3.29-11.43)
[2023-11-04 18:44] LABS: Slide Review Slide Review Perform
[2023-11-04 18:56] LABS: Albumin Level 4.5 g/dL (3.5-5.2); Anion Gap 16.2 (5-19); Blood Urea Nitrogen 28 mg/dL (8-23); Calcium 10.3 mg/dL (8.5-10.5); Carbon Dioxide 28 mmol/L (22-29); Chloride 104 mmol/L (98-107); Glucose 90 mg/dL (65-115); Potassium 4.2 mmol/L (3.5-5.1); Sodium 144 mmol/L (136-145)
[2023-11-04 18:57] LABS: Calcium 10.5 mg/dL (8.5-10.5)
[2023-11-04 18:59] LABS: Creatinine Urine, Random 91 mg/dL (28-217); Microalbum Creatinine Ratio Ur 11 mg/dL (0-20); Microalbumin Random Urine 1 ug/dL (0-20)
[2023-11-04 19:01] LABS: Parathyroid Hormone 17.1 pg/mL (15-65)
[2023-11-05 09:41] LABS: 25 Hydroxy Vitamin D 102 ng/mL (30-100)
== END 2023-11-04 16:10 | disposition home or self-care (01) ==
LOC: LAB 16:17
PROVIDERS: PCP Registered Nurse; Visit Provider Internal Medicine Nephrology
DX: N18.32 Chronic kidney disease, stage 3b (principal)
CPT/HCPCS: 80069; 82044; 82306; 82310; 83970; 85025

== ENCOUNTER → 2024-09-11 14:18 | Outpatient (BNVA) | payer MEDICARE, OTHER, SELFPAY | PROVIDERS: PCP Registered Nurse; Visit Provider Registered Nurse | DX: J06.9 Acute upper respiratory infection, unspecified (principal) | CPT/HCPCS: 87400 ==

== ENCOUNTER 2024-09-14 11:50 | Outpatient (CLI) | payer MEDICARE, OTHER, SELFPAY ==
--- NOTE | 2024-09-14 11:59 | XR_ITS ---
WS: [id number] XR chest 2V* [id number] REASON FOR EXAM: J06.9 - Acute upper respiratory infection, unspecified FINDINGS: Moderate tortuosity and ectasia of the thoracic aorta with mild cardiomegaly. Bilateral calcified granulomas disease. No acute pulmonary parenchymal or pleural disease. No lung nodule, lung mass, or adenopathy. Eventration of the right hemidiaphragm. Old healed rib fractures on the right. Mild degenerative spondylosis of the thoracic spine. XR/XR chest 2V* [id number] IMPRESSION: Mild cardiomegaly. No acute chest abnormality.
== END 2024-09-14 11:51 | disposition home or self-care (01) ==
LOC: RAD 11:53
PROVIDERS: PCP Registered Nurse; Visit Provider Registered Nurse
DX: J06.9 Acute upper respiratory infection, unspecified (principal); I51.7 Cardiomegaly; I77.810 Thoracic aortic ectasia; J84.10 Pulmonary fibrosis, unspecified; R91.8 Other nonspecific abnormal finding of lung field; Z87.81 Personal history of (healed) traumatic fracture; M47.894 Other spondylosis, thoracic region
CPT/HCPCS: 71046; 85025

== ENCOUNTER 2024-11-28 10:57 | Outpatient (CLI) | payer MEDICARE, OTHER, SELFPAY ==
--- NOTE | 2024-11-28 11:00 | MM_ITS ---
WS: [id number] BILATERAL 3D TOMOSYNTHESIS DIGITAL SCREENING MAMMOGRAPHY WITH CAD CLINICAL INFORMATION: SCREENING HISTORY: Screening mammogram. No current complaints. COMPARISON: 2023 TECHNIQUE: Bilateral CC and MLO views. FINDINGS: The breasts are composed of heterogeneous fibroglandular density tissue, which can limit the detection of small underlying mass lesions. No suspicious mass, asymmetry, calcifications, or architectural distortion. No evidence of malignancy. Biopsy clip RIGHT breast with stable adjacent nodule. MM/MM [facility] tomosynthesis [id number] IMPRESSION: DENSITY: The breasts are heterogeneously dense, which may obscure small masses. BI-RADS: 2 - Benign FOLLOW UP: 1 Year Follow-up Recommend return to annual screening mammography.
== END 2024-11-28 10:58 | disposition home or self-care (01) ==
LOC: MOBLMAM 10:58
PROVIDERS: PCP Registered Nurse; Visit Provider Registered Nurse
DX: Z12.31 Encounter for screening mammogram for malignant neoplasm of breast (principal); R92.333 Mammographic heterogeneous density, bilateral breasts
CPT/HCPCS: 77063; 77067

== ENCOUNTER → 2025-03-16 10:32 | Outpatient (BNVA) | payer MEDICARE, OTHER, SELFPAY | PROVIDERS: PCP Registered Nurse; Visit Provider Nurse Practitioner Family | DX: N39.0 Urinary tract infection, site not specified (principal) | CPT/HCPCS: 81000 ==